=== PATIENT | male | born 1960 | race Caucasian/White ===

== ENCOUNTER 2023-06-29 12:40 | Emergency (ER) | payer BC, SELFPAY ==
[2023-06-29] VITALS (17 sets, daily range): BP systolic 142–174; BP diastolic 82–113; PULSE 63–99; RESP 8–24; TEMP 36.3; O2SAT 96–100; BMI 34.5
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
--- NOTE | 2023-06-29 12:48 | ECG_ITS ---
The [facility] Test Date: 2023-06-29 Pat Name: ANGELICA MARINA Department: Room: - Gender: Male [employer]: : 1960 Requested By: Wali Casas Order Number: [id number] Reading MD: ANGEL DIANA Measurements Intervals [place] Rate: 75 P: 63 MD: 156 QRS: 94 QRSD: 108 T: 8 QT: 402 QTc: 432 Interpretive Statements 1100 Sinus rhythm 1574 with frequent ventricular premature complexes 2440 Incomplete right bundle branch block 6220 Possible left atrial enlargement 7102 Moderate right axis deviation 9140 abnormal rhythm ECG No previous ECG available for comparison Electronically Signed On 06-30-2023 13:10:00 EDT by ANGEL DIANA
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
[2023-06-29] MEDS: ONDANSETRON PF 4 MG/2 ML VIAL IV (13:22)
[2023-06-29] MEDS: 0.9 % SODIUM CHLORIDE 1,000 ML 999 ML IV (13:22)
[2023-06-29 13:50] LABS: Basophils Absolute Auto 0.1 10^3/uL (0.0-0.1); Basophils Percent Auto 0.6 % (0.2-2.0); Eosinophils Absolute Auto 0.5 10^3/uL (0.0-0.7); Eosinophils Percent Auto 5.2 % (0.9-7.0); Hematocrit 38.8 % (42.0-54.0); Hemoglobin 13.1 g/dL (14.0-18.0); Immature Granulocytes Abs Auto 0.02 10^3/uL (0.00-0.03); Immature Granulocytes Pct Auto 0.2 % (0.0-0.5); Lymphocytes Percent Auto 22.9 % (20.5-60.0); Mean Corpuscular HGB Conc 33.8 g/dL (29.9-35.2); Mean Corpuscular Hemoglobin 30.1 pg (25.9-34.0); Mean Corpuscular Volume 89.2 fL (80.0-94.0); Mean Platelet Volume 9.4 fL (9.5-13.5); Monocytes Absolute Auto 0.6 10^3/uL (0.3-0.8); Monocytes Percent Auto 6.7 % (1.7-12.0); Neutrophils Absolute Auto 5.7 10^3/uL (1.4-6.5); Neutrophils Percent Auto 64.4 % (43.0-75.0); Platelet Count 223 10^3/uL (150-450); Red Blood Count 4.35 10^6/uL (4.70-6.10); Red Cell Distribution Width 12.9 % (11.0-15.0); White Blood Count 8.8 10^3/uL (4.0-11.0)
[2023-06-29 14:16] LABS: Alanine Aminotransferase 18 U/L (16-63); Albumin Globulin Ratio 1.2; Albumin Level 3.5 g/dL (3.4-5.0); Alkaline Phosphatase 64 U/L (46-116); Anion Gap 9.7; Aspartate Amino Transferase 12 U/L (15-37); BUN Creatinine Ratio 21.2; Bilirubin Total 0.3 mg/dL (0.2-1.0); Calcium 8.3 mg/dL (8.5-10.1); Carbon Dioxide 29.1 mmol/L (21.0-32.0); Chloride 107 mmol/L (98-107); Estimated GFR (African America >60 (>=60); Estimated GFR (Non-African Ame >60 (>=60); Ethanol <3 mg/dL; Glucose 99 mg/dL (74-106); Potassium 3.8 mmol/L (3.5-5.1); Sodium 142 mmol/L (136-145); Total Protein 6.5 g/dL (6.4-8.2)
== END 2023-06-29 14:46 | disposition home or self-care (01) ==
PROVIDERS: Emergency Provider Emergency Medicine
DX: S06.0X0A Concussion without loss of consciousness, initial encounter (principal); V86.59XA Driver of other special all-terrain or other off-road motor vehicle injured in nontraffic accident, initial encounter; Z79.899 Other long term (current) drug therapy; J45.990 Exercise induced bronchospasm
CPT/HCPCS: 36415; 70450; 71045; 72125; 80053; 80320; 85025; 93005; 96374; 99285